=== PATIENT | female | born 2000 | race Caucasian/White ===

== ENCOUNTER 2021-02-19 15:08 | Emergency (ER) | payer OTHER ==
[2021-02-19 15:09] VITALS: BP 133/93
--- NOTE | 2021-02-19 15:38 | NUR ---
PATIENT LEFT WITHOUT BEING SEEN BY DR. DE LA TORRE. NO FURTHER CARE PROVIDED FOR PATIENT.
== END 2021-02-19 15:28 | disposition left against medical advice (07) ==
LOC: MED 15:08
DX: R30.9 Painful micturition, unspecified (principal); Z53.21 Procedure and treatment not carried out due to patient leaving prior to being seen by health care provider